=== PATIENT | male | born 1995 | race Caucasian/White ===

== ENCOUNTER 2017-06-26 13:40 | Emergency (ER) | payer SELFPAY ==
[2017-06-26 14:01] VITALS: BP 153/85
--- NOTE | 2017-06-26 14:15 | ER Document Report ---
ED Medical Screen (RME) - General Chief Complaint: Hemorrhoids Stated Complaint: ABSCESS/RECTUM Time Seen by Provider: 06/26/17 14:13 TRAVEL OUTSIDE OF THE [place] IN LAST 30 DAYS: No - HPI Patient complains to provider of: Rectal pain, possible hemorrhoid or abscess. Tender to touch. 8/10 sharp Notes: 06/26/17 14:14 Patient noticed the pain started yesterday. Patient denies having anal intercourse, receptive sex with men, any anal penetration or trauma. Denies fever chills nausea vomiting diarrhea. Patient does not have a family doctor. - Related Data Allergies/Adverse Reactions: No Known Allergies Allergy (Verified 06/26/17 13:41) Past Medical History - Social History Chew tobacco use (# tins/day): No Frequency of alcohol use: None Drug Abuse: None - Past Medical History Cardiac Medical History: Reports: Hx Hypertension - white coat syndrome Renal/ Medical History: Denies: Hx Peritoneal Dialysis Musculoskeltal Medical History: Reports Hx Musculoskeletal Trauma Psychiatric Medical History: Reports: Hx Bipolar Disorder Traumatic Medical History: Reports: Hx Fractures - boxer to right hand - Immunizations Immunizations up to date: Yes Hx Diphtheria, Pertussis, Tetanus Vaccination: Yes Physical Exam - Vital signs Vitals: Temp Pulse Resp BP Pulse Ox 98.6 F 61 16 153/85 H 98 06/26/17 13:55 06/26/17 13:55 06/26/17 13:55 06/26/17 13:55 06/26/17 13:55 Course - Vital Signs Vital signs: Temp Pulse Resp BP Pulse Ox 98.6 F 61 16 153/85 H 98 06/26/17 13:55 06/26/17 13:55 06/26/17 13:55 06/26/17 13:55 06/26/17 13:55
--- NOTE | 2017-06-26 14:31 | ER Document Report ---
ED GI Bleed / Rectal Pain - General Chief Complaint: Hemorrhoids Stated Complaint: ABSCESS/RECTUM Time Seen by Provider: 06/26/17 14:13 Notes: The patient is a 22-year-old male who presents with 2 days of rectal pain is tender and hurts when he has a bowel movement. He denies anal trauma, receptive anal intercourse, fevers or rectal bleed. TRAVEL OUTSIDE OF THE [place] IN LAST 30 DAYS: No - Related Data Allergies/Adverse Reactions: No Known Allergies Allergy (Verified 06/26/17 13:41) Past Medical History - General Information source: Patient - Social History Smoking Status: Current Every Day Smoker Chew tobacco use (# tins/day): No Frequency of alcohol use: None Drug Abuse: None Family History: Reviewed & Not Pertinent, Arthritis, DM Patient has suicidal ideation: No Patient has homicidal ideation: No - Past Medical History Cardiac Medical History: Reports: Hx Hypertension - white coat syndrome Renal/ Medical History: Denies: Hx Peritoneal Dialysis Musculoskeltal Medical History: Reports Hx Musculoskeletal Trauma Psychiatric Medical History: Reports: Hx Bipolar Disorder Traumatic Medical History: Reports: Hx Fractures - boxer to right hand - Immunizations Immunizations up to date: Yes Hx Diphtheria, Pertussis, Tetanus Vaccination: Yes Review of Systems - Review of Systems Notes: REVIEW OF SYSTEMS: CONSTITUTIONAL: -fevers, -chills EENT: -eye pain, -difficulty swallowing, -nasal congestion CARDIOVASCULAR:-chest pain, -syncope. RESPIRATORY: -cough, -SOB GASTROINTESTINAL: +rectal pain, -abdominal pain, - nausea, -vomiting, -diarrhea GENITOURINARY: -dysuria, -hematuria MUSCULOSKELETAL: -back pain, -neck pain SKIN: -rash or skin lesions. HEMATOLOGIC: -easy bruising or bleeding. LYMPHATIC: -swollen, enlarged glands. NEUROLOGICAL: -altered mental status or loss of consciousness, -headache, - neurologic symptoms PSYCHIATRIC: -anxiety, -depression. ALL OTHER SYSTEMS REVIEWED AND NEGATIVE. Physical Exam - Vital signs Vitals: Temp Pulse Resp BP Pulse Ox 98.6 F 61 16 153/85 H 98 06/26/17 13:55 06/26/17 13:55 06/26/17 13:55 06/26/17 13:55 06/26/17 13:55 - Notes Notes: PHYSICAL EXAMINATION: GENERAL: Well-appearing, well-nourished and in no acute distress. HEAD: Atraumatic, normocephalic. EYES: Pupils equal round and reactive to light, extraocular movements intact, sclera anicteric, conjunctiva are normal. ENT: nares patent, oropharynx clear without exudates. Moist mucous membranes. NECK: Normal range of motion, supple without lymphadenopathy LUNGS: Breath sounds clear to auscultation bilaterally and equal. No wheezes rales or rhonchi. HEART: Regular rate and rhythm without murmurs ABDOMEN: Soft, nontender, normoactive bowel sounds. No guarding, no rebound. No masses appreciated. RECTAL: Non-thromboses, non-bleeding external hemorrhoid at the 7 o'clock position. Non-tender rectal exam without fluctuance or discharge. EXTREMITIES: Normal range of motion, no pitting or edema. No cyanosis. NEUROLOGICAL: Cranial nerves grossly intact. Normal speech, normal gait. Normal sensory and motor exams. PSYCH: Normal mood, normal affect. SKIN: Warm, Dry, normal turgor, no rashes or lesions noted. Course - Re-evaluation Re-evalutation: Patient with a nonthrombosed, nonbleeding external hemorrhoid. No evidence of rectal or anal abscess or fistula. Instructed patient about symptomatic management and follow-up with GI. Also given strict return precautions. - Vital Signs Vital signs: Temp Pulse Resp BP Pulse Ox 98.6 F 61 16 153/85 H 98 06/26/17 13:55 06/26/17 13:55 06/26/17 13:55 06/26/17 13:55 06/26/17 13:55 Discharge - Discharge Clinical Impression: External hemorrhoids without complication Condition: Stable Disposition: HOME, SELF-CARE Additional Instructions: Hemorrhoids You have hemorrhoids. These are formed by enlargement of veins around the anus. The cause is increased pressure in the veins, from or straining at bowel movements. Hemorrhoids often cause itching and bleeding with bowel movements. When a hemorrhoid becomes clotted, severe pain and swelling result. Soothing creams and suppositories are often prescribed. Warm sitz-baths may also decrease pain, swelling, and itching. Eat a high-fiber diet. Stool softeners such as Metamucil will help. Keep the area very clean. Medicated cleansing pads (such as Tucks) are useful after bowel movements. A hose-mounted shower unit (like a shower massager at low water pressure) can be used to clean around tender hemorrhoid tags. You should call the doctor or return if you develop fever, increasing pain , or an enlarging mass around the anus, or if you simply fail to improve with treatment. Prescriptions: Phenylephrine HCl/Witch Ophelia [Preparation H Cooling Gel] 51 gm TP TID PRN #51 gel..gm. PRN Reason: Forms: Elevated Blood Pressure Referrals: KRAIG LYNN MD [ACTIVE STAFF] - Follow up as needed
== END 2017-06-26 14:58 | disposition home or self-care (01) ==
LOC: ER 13:40
DX: K64.4 Residual hemorrhoidal skin tags (principal); F17.200 Nicotine dependence, unspecified, uncomplicated
CPT/HCPCS: 99282

== ENCOUNTER 2017-07-16 10:30 | Emergency (ER) | payer SELFPAY | END 2017-07-16 14:15 | disposition left against medical advice (07) | LOC: ER 10:30 | DX: Z53.21 Procedure and treatment not carried out due to patient leaving prior to being seen by health care provider (principal) | CPT/HCPCS: L1830 ==

== ENCOUNTER 2017-07-16 22:05 | Emergency (ER) | payer SELFPAY ==
--- NOTE | 2017-07-17 00:56 | ER Document Report ---
ED Extremity Problem, Lower - General Chief Complaint: Knee Injury Stated Complaint: RIGHT KNEE INJURY Time Seen by Provider: 07/17/17 00:51 Mode of Arrival: Ambulatory Information source: Patient TRAVEL OUTSIDE OF THE [place] IN LAST 30 DAYS: No - HPI Patient complains to provider of: Injury Location: Knee Occurred: Yesterday Where: Indoors Onset/Duration: Sudden Notes: Patient arrives with complaints of right knee pain since yesterday. He states he was working out when he jumped up he felt a pop in his knee as his knee hyperextended and he has had pain to the posterior aspect of the knee since that time. He denies any numbness, tingling, weakness. No fever. No redness. He denies any chest pain or shortness of breath. He denies any nausea, vomiting, diarrhea. He denies any other injuries. The pain is worse with walking, better with rest. He denies any other complaints at this time. - Related Data Allergies/Adverse Reactions: No Known Allergies Allergy (Verified 07/17/17 00:56) Past Medical History - Social History Smoking Status: Unknown if Ever Smoked Family History: Reviewed & Not Pertinent, Arthritis, DM - Past Medical History Cardiac Medical History: Reports: Hx Hypertension - white coat syndrome Renal/ Medical History: Denies: Hx Peritoneal Dialysis Musculoskeltal Medical History: Reports Hx Musculoskeletal Trauma Psychiatric Medical History: Reports: Hx Bipolar Disorder Traumatic Medical History: Reports: Hx Fractures - boxer to right hand - Immunizations Immunizations up to date: Yes Hx Diphtheria, Pertussis, Tetanus Vaccination: Yes Review of Systems - Review of Systems -: Yes All other systems reviewed and negative Physical Exam - Vital signs Vitals: Temp Pulse Resp BP Pulse Ox 98.4 F 50 L 20 145/76 H 100 07/16/17 23:32 07/16/17 23:32 07/16/17 23:32 07/16/17 23:32 07/16/17 23:32 - Notes Notes: GENERAL: alert, cooperative, nontoxic, no distress. HEAD: normocephalic, atraumatic EYES: conjunctiva pink without discharge, no external redness or swelling. EARS: no external swelling, no external redness NOSE: atraumatic, no external swelling MOUTH/THROAT: mucous membranes moist and pink NECK: soft, supple, full range of motion, no meningismus. CHEST: no distress, lungs clear and equal throughout. No wheezing, rales, rhonchi. CARDIAC: regular rate and rhythm, no murmur, normal capillary refill, normal pulses. BACK: full range of motion, no CVA tenderness. EXTREMITIES: full range of motion of all extremities. No redness, no swelling. Tenderness to the lateral aspect of the right knee. No obvious ligament instability. Normal anterior posterior drawer. Ankle and hip are normal. Normal pulse and sensation distally. Compartments are soft. NEURO: alert and oriented 3, no focal deficits, full range of motion of all extremities. PYSCH: appropriate mood, affect. Patient is cooperative. SKIN: pink, warm, dry, no rash. Course - Re-evaluation Re-evalutation: 07/17/17 01:30 Patient is nontoxic appearing with stable vitals. Patient arrives with pain in the right knee after jumping up while working out and feeling a pop in his knee. He has no obvious ligament instability on this exam. There is no redness or signs of infection with no fever. Compartments are soft. He is neurovascularly intact. X-ray showed no acute abnormality per the radiologist. The patient will be placed in a knee immobilizer. Will be discharged home with a prescription for Naprosyn and Ultram. Referral to orthopedics. Rest, ice, elevate. Follow-up if not better in 1 week, sooner for increased pain, fever, redness, numbness, tingling, weakness, any further concerns. The patient is noted to have elevated blood pressure during today's emergency department visit. The patient was informed of this finding. The patient was instructed that this may be related to pre-hypertension and requires further evaluation with a primary care provider. The patient has no hypertensive symptoms at this time. The patient's emergency department workup and current diagnosis were explained to the patient and or family. Follow-up instructions were provided. Medications if prescribed were discussed. Instructions for when to return to the emergency department including specific worrisome symptoms were discussed with the patient and/or family. - Vital Signs Vital signs: Temp Pulse Resp BP Pulse Ox 98.4 F 50 L 20 145/76 H 100 07/16/17 23:32 07/16/17 23:32 07/16/17 23:32 07/16/17 23:32 07/16/17 23:32 - Diagnostic Test Radiology reviewed: Image reviewed, Reports reviewed - No acute finding in the knee Procedures - Immobilization Right knee Pre-Proc Neuro Vasc Exam: Normal Immobilizer type: Knee immobilizer Performed by: RN Post-Proc Neuro Vasc Exam: Normal Alignment checked and good: Yes Discharge - Discharge Clinical Impression: Right knee sprain Qualifiers: Encounter type: initial encounter Involved ligament of knee: unspecified ligament Qualified Code(s): S83.91XA - Sprain of unspecified site of right knee , initial encounter Condition: Stable Disposition: HOME, SELF-CARE Instructions: Ice & Elevation ([facility]), Knee Immobilizing Splint ([facility]), Sprained Knee ([facility]), Oral Narcotic Medication ([facility]) Additional Instructions: Take medications as prescribed. Wear splint as needed for comfort. Rest, ice, elevate your knee. Follow-up if not better in 1 week, sooner for increasing pain, fever, redness, numbness, tingling, weakness, any further concerns. Your blood pressure was elevated during today's visit. Have this rechecked with your doctor. The medication you were prescribed today may cause drowsiness. Do not drive or operate heavy machinery while taking this medication. Prescriptions: Tramadol HCl [Ultram 50 mg Tablet] 50 mg PO Q6HP PRN #12 tablet PRN Reason: Naproxen [Naprosyn] 500 mg PO BID #20 tablet Forms: Elevated Blood Pressure, Smoking Cessation Education Referrals: HAYDER MORELAND MD [ACTIVE STAFF] - Follow up as needed
--- NOTE | 2017-07-17 01:13 | RADIOLOGY REPORT (SQ) ---
EXAM DESCRIPTION: KNEE RIGHT 3 VIEWS CLINICAL HISTORY: pain COMPARISON: None. FINDINGS: 3 views of the right knee. No acute fracture or dislocation. Normal osseous mineralization. No definite joint effusion. IMPRESSION: No acute fracture or dislocation.
[2017-07-17 01:50] VITALS: BP 138/66
== END 2017-07-17 01:50 | disposition home or self-care (01) ==
LOC: ER 22:05
DX: S83.91XA Sprain of unspecified site of right knee, initial encounter (principal); M25.561 Pain in right knee; X50.0XXA Overexertion from strenuous movement or load, initial encounter; Y93.39 Activity, other involving climbing, rappelling and jumping off; I10 Essential (primary) hypertension
CPT/HCPCS: 99283

== ENCOUNTER 2017-09-16 16:26 | Emergency (ER) | payer SELFPAY ==
[2017-09-16] MEDS ORDERED: KETOROLAC TROMETHAMINE INJ/PF 30 MG/1 ML SDV IM ONE (17:57)
--- NOTE | 2017-09-16 18:02 | ER Document Report ---
ED Neck/Back Problem - General Chief Complaint: Back Pain Stated Complaint: BACK PAIN Time Seen by Provider: 09/16/17 17:29 Mode of Arrival: Ambulatory Information source: Patient TRAVEL OUTSIDE OF THE [place] IN LAST 30 DAYS: No - HPI Patient complains to provider of: Pain, Upper back Notes: Patient is here with complaints of left upper back pain. He states that he was changing his tire yesterday and when he was loosening when the log notes he had a sudden pain in his left upper back. Pain is been persistent since. Is worse with any sort of movement. Better with rest. He denies any traumatic injuries or falls. He denies bowel or bladder dysfunction. He is not on blood thinning medications. He denies IV drug use. He denies fevers. He denies abdominal pain, nausea, vomiting, diarrhea, dysuria or hematuria. Ibuprofen has not been helping the pain. He denies any other complaints at this time. - Related Data Allergies/Adverse Reactions: No Known Allergies Allergy (Verified 09/16/17 16:28) Past Medical History - Social History Smoking Status: Current Every Day Smoker Chew tobacco use (# tins/day): No Frequency of alcohol use: None Drug Abuse: None Family History: Reviewed & Not Pertinent, Arthritis, DM Patient has suicidal ideation: No Patient has homicidal ideation: No - Past Medical History Cardiac Medical History: Reports: Hx Hypertension - white coat syndrome Renal/ Medical History: Denies: Hx Peritoneal Dialysis Musculoskeltal Medical History: Reports Hx Musculoskeletal Trauma Psychiatric Medical History: Reports: Hx Bipolar Disorder Traumatic Medical History: Reports: Hx Fractures - boxer to right hand - Immunizations Immunizations up to date: Yes Hx Diphtheria, Pertussis, Tetanus Vaccination: Yes Review of Systems - Review of Systems -: Yes All other systems reviewed and negative Physical Exam - Vital signs Vitals: Temp Pulse Resp BP Pulse Ox 97.8 F 62 20 146/75 H 99 09/16/17 16:43 09/16/17 16:43 09/16/17 16:43 09/16/17 16:43 09/16/17 16:43 - Notes Notes: GENERAL: alert, cooperative, nontoxic, no distress. HEAD: normocephalic, atraumatic EYES: conjunctiva pink without discharge, no external redness or swelling. EARS: no external swelling, no external redness NOSE: atraumatic, no external swelling MOUTH/THROAT: mucous membranes moist and pink, posterior pharynx without erythema, swelling, exudate. No trismus or drooling. NECK: soft, supple, full range of motion, no meningismus. CHEST: no distress, lungs clear and equal throughout. No wheezing, rales, rhonchi. CARDIAC: regular rate and rhythm, no murmur, normal capillary refill, normal pulses. No peripheral edema noted. ABDOMEN: soft, nontender, no pusatile mass. BACK: No CVA tenderness. Tenderness along the left thoracic paraspinal muscles and lateral muscles. Muscle spasm noted. No midline tenderness step-offs or crepitus. Limited range of motion secondary to pain. EXTREMITIES: full range of motion of all extremities. No redness, no swelling. NEURO: alert and oriented A&O x 3, no focal deficits, full range of motion of all extremities. 5 out of 5 flexion and extension of the lower extremities bilaterally. Patellar and Achilles deep tendon reflexes are +2 bilaterally. Normal sensation with no saddle anesthesia. Patient can dorsiflex the great toes bilaterally. PYSCH: appropriate mood, affect. Patient is cooperative. SKIN: pink, warm, dry, no rash. Course - Re-evaluation Re-evalutation: 09/16/17 17:59 The patient is nontoxic appearing with stable vitals. He is here with complaints of left upper back pain that occurred while he was loosening a log not while changing his tire. There was no trauma. On exam he has obvious muscle spasm in the area of pain. He has no midline bone tenderness. He has no sign or risk of cauda equina, epidural abscess/bleed, discitis, osteomyelitis , AAA. He has a benign exam with no focal deficits. Patient drove himself here. He will be given a shot of Toradol here will be discharged home with Naprosyn and Valium. He was instructed to massage the area. Avoid heavy lifting, stretch as much as possible, apply heat to the sore area. Follow-up if not better in 1 week, sooner for worsening pain, fever, numbness, tingling, weakness, bowel or bladder dysfunction, or for any further concerns. The patient is noted to have elevated blood pressure during today's emergency department visit. The patient was informed of this finding. The patient was instructed that this may be related to pre-hypertension and requires further evaluation with a primary care provider. The patient has no hypertensive symptoms at this time. The patient's emergency department workup and current diagnosis were explained to the patient and or family. Follow-up instructions were provided. Medications if prescribed were discussed. Instructions for when to return to the emergency department including specific worrisome symptoms were discussed with the patient and/or family. - Vital Signs Vital signs: Temp Pulse Resp BP Pulse Ox 97.8 F 62 20 146/75 H 99 09/16/17 16:43 09/16/17 16:43 09/16/17 16:43 09/16/17 16:43 09/16/17 16:43 Discharge - Discharge Clinical Impression: Spasm of thoracic back muscle Condition: Stable Disposition: HOME, SELF-CARE Instructions: Muscle Strain ([facility]), Oral Narcotic Medication ([facility]), Pain Medication Injection ([facility]), Warm Packs ([facility]) Additional Instructions: Take medications as prescribed. Apply heat to the sore area. Try to stretch as much as possible. Avoid heavy lifting for at least a week. Follow-up if not improving in the next week, sooner for worsening pain, fever, abdominal pain , difficulty controlling her bowels or bladder, persistent vomiting, or for any further concerns. Your blood pressure was elevated during today's visit. Have this rechecked with your doctor. The medication you were prescribed today may cause drowsiness. Do not drive or operate heavy machinery while taking this medication. Prescriptions: Diazepam [Valium 5 mg Tablet] 5 mg PO QIDP PRN #15 tablet PRN Reason: Naproxen [Naprosyn] 500 mg PO BID #20 tablet Forms: Elevated Blood Pressure, Smoking Cessation Education Referrals: [facility] [Provider Group] - Follow up as needed
[2017-09-16 18:41] VITALS: BP 140/72
== END 2017-09-16 18:46 | disposition home or self-care (01) ==
LOC: ER 16:26
DX: M62.830 Muscle spasm of back (principal); M54.89 Other dorsalgia; F17.200 Nicotine dependence, unspecified, uncomplicated; R03.0 Elevated blood-pressure reading, without diagnosis of hypertension
CPT/HCPCS: 99283; 96372; J1885